=== PATIENT | female | born 1965 | race Caucasian/White ===

== ENCOUNTER 2022-06-05 07:36 | Day surgery (SDC) | payer MEDICAID ==
[2022-06-04 14:02] LABS: CLARITY,URINE SLIGHTLY CLOUDY (Clear); COLOR,URINE YELLOW (Yellow); GLUCOSE, URINE NEGATIVE (Neg); KETONES,URINE TRACE mg/dl (Neg); LEUKOCYTE ESTERASE ,URINE NEGATIVE (Neg); NITRITES, URINE NEGATIVE (Neg); OCCULT BLOOD,URINE NEGATIVE (Neg); PROTEIN,URINE NEGATIVE (Neg); UROBILINOGEN,URINE 0.2 E.U/dL (0.2-1.0)
[2022-06-04 14:08] LABS: UA COLLECTION TYPE CLN CATCH MIDSTREAM
[2022-06-04 14:10] LABS: RBC,URINE NONE SEEN /HPF (0-2); WBC,URINE 0-4 /HPF (0-4)
[2022-06-04 14:12] LABS: BACTERIA,URINE FEW /HPF (Neg); MUCUS STRANDS MANY /LPF (Neg); SQUAMOUS EPITHELIAL CELL,UR MODERATE /LPF (FEW)
[2022-06-04 14:13] LABS: ALBUMIN/GLOBULIN RATIO 1.1 (1.1-1.5); ALKALINE PHOSPHATASE 71 IU/L (46-116); BLOOD UREA NITROGEN 12 MG/DL (7-18); BUN/CREATININE RATIO 14.3 (6.6-38.0); CALCIUM 9.8 MG/DL (8.5-10.1); CHLORIDE 102 MMOL/L (99-107); CREATININE 0.84 MG/DL (0.40-0.90); PRE OP ALT 73 U/L (30-65); PRE OP ANION GAP 6 (8-16); PRE OP AST 28 U/L (10-37); PRE OP BILIRUB, TOTAL 0.7 MG/DL (0.0-1.0); PRE OP POTASSIUM 3.9 MMOL/L (3.4-5.1); PRE OP SODIUM 140 MMOL/L (135-145); TOTAL CARBON DIOXIDE 32.1 MMOL/L (24-32); TOTAL PROTEIN 7.6 G/DL (6.4-8.2); eGFR 70 ML/MIN
[2022-06-04 14:13] LABS: HYALINE CASTS 0-3 /LPF (NEGATIVE)
[2022-06-04 14:18] LABS: BASOPHILS # (AUTO) 0.1 X10'3 (0-0.2); EOSINOPHILS # (AUTO) 0.1 X10'3 (0-0.9); EOSINOPHILS % (AUTO) 1.4 % (0-6); LYMPHOCYTES # (AUTO) 3.5 X10'3 (1.1-4.8); LYMPHOCYTES % (AUTO) 37.9 % (21-51); MEAN CORPUSCULAR HEMOGLOBIN 30.4 PG (27.0-31.0); MEAN CORPUSCULAR HGB CONC 34.5 g/dL (33.0-36.5); MEAN CORPUSCULAR VOLUME 88.1 FL (78-98); MEAN PLATELET VOLUME 6.7 FL (7.4-10.4); MONOCYTES # (AUTO) 0.5 X10'3 (0-0.9); MONOCYTES % (AUTO) 4.9 % (2-12); NEUTROPHILS # (AUTO) 5.1 X10'3 (1.8-7.7); NEUTROPHILS % (AUTO) 54.8 % (42-75); PRE OP HEMATOCRIT 46.1 % (35.0-45.0); PRE OP HEMOGLOBIN 15.9 g/dL (12.0-16.0); PRE OP PLATELET COUNT 408 X10'3 (140-440); RED BLOOD COUNT 5.23 X10'6 (4.20-5.60); RED CELL DISTRIBUTION WIDTH 11.8 % (11.5-14.5)
[2022-06-04 14:22] LABS: PRE OP GLUCOSE 246 MG/DL (70-104)
[~2022-06-05] VITALS: Ht 157.5 cm; Wt 69.0 kg
[2022-06-05] VITALS (17 sets, daily range): BP systolic 127–161; BP diastolic 74–100
[~2022-06-05 07:36] MED LIST: AMLO5TAB16 PO; BENA40TA72 PO; GABA300T25 PO; METF-1203 PO; ceFAZolin inj. 2,000 MG in dextrose 5%-water 100 ML IV ONE; famotidine 20mg tablet PO ONE; ringers solution, lacted 1,000 ML IV SCH
[2022-06-05] MEDS ORDERED: sevoflurane 250ml liquid IH ONE (09:52)
[2022-06-05] MEDS ORDERED: BUPIVAcaine 0.5% inj/PF 30 ML ONE (09:53)
[2022-06-05] MEDS ORDERED: midazolam 1 mg/ML 2ml injection ONE (09:59)
[2022-06-05] MEDS ORDERED: fentaNYL /PF 50mcg/ml 5ml ampule ONE (09:59)
[2022-06-05] MEDS ORDERED: LIDOcaine 2% (20mg/ml) 5ml vial ONE (10:38)
[2022-06-05] MEDS ORDERED: ondansetron/PF 4mg/2ml inj ONE (10:38)
[2022-06-05] MEDS ORDERED: rocuronium 10mg/ml inj IV ONE (10:38)
[2022-06-05] MEDS ORDERED: propofol inj 20 ML IV ONE (10:38)
[2022-06-05] MEDS ORDERED: dexamethasone sod phosphate 4mg/ml inj. ONE (10:38)
[2022-06-05] MEDS ORDERED: BUPIVAcaine 0.5% inj/PF 30 ml vial IJ ONE (10:41)
[2022-06-05] MEDS ORDERED: neostigmine methylsulfate 1 MG/ML 10ml vial ONE (11:49)
[2022-06-05] MEDS ORDERED: glycopyrrolate 0.2mg/ml inj ONE (11:50)
--- NOTE | 2022-06-05 12:02 | NUR ---
Received from OR via [facility], accompanied by Anesthesiologist DR PRINCE and report given by Anesthesiologist AND TAXI DRIVER. PT DROWSY W/LMA IN PLACE, NO S/S OF DISTRESS/DISCOMFORT, ABDOMEN W/4 LAP SITES W/DERMABOND CDI. Addendum: 06/05/22 at 1221 by Fang Calvert RN Amended: Links added.
[2022-06-05] MEDS ORDERED: meperidine/PF 25mg/ml syringe ONE (12:32)
[2022-06-05] MEDS ORDERED: ringers solution, lacted 1,000 ML IV SCH (12:40)
[2022-06-05] MEDS ORDERED: morphine 2 MG/ML inj. syringe IV PRN (12:40)
[2022-06-05] MEDS ORDERED: meperidine/PF 25mg/ml syringe IV PRN ×3 (12:40)
[2022-06-05] MEDS ORDERED: ketorolac trometh. 30mg/ml inj. IV ONE (12:40)
[2022-06-05] MEDS ORDERED: proCHLORperazine 10 MG/2 ml inj IV PRN (12:40)
[2022-06-05] MEDS ORDERED: ondansetron/PF 4mg/2ml inj IV PRN (12:40)
[2022-06-05] MEDS ORDERED: labetalol 20mg/4ml (5mg/ml) syringe IV PRN (12:40)
[2022-06-05] MEDS ORDERED: acetaminophen 1,000mg/100ml IV 100 ML IV PRN (12:40)
[2022-06-05] MEDS ORDERED: morphine 4 MG/ML inj SYRINge IV PRN (12:40)
[2022-06-05] MEDS ORDERED: hydrALAZINE 20mg/ml inj. IV PRN (12:40)
[2022-06-05] MEDS ORDERED: oxyCODONE/APAP 5-325mg tablet PO ONE (14:35)
--- NOTE | 2022-06-05 14:36 | NUR ---
PT UP AND AMBULATED TO BATHROOM FOR VOID, STEADY ON FEET. AWAITING HER RIDE HOME. Addendum: 06/05/22 at 1437 by Fang Calvert RN Amended: Links added.
--- NOTE | 2022-06-05 14:52 | NUR ---
PTS RIDE ARRIVED, D/C INSTRUCTIONS GIVEN AND GONE OVER W/PT WHO VERBALIZED UNDERSTANDING. PT D/CD TO HOME VIA W/C TO PRIVATE VEHICLE W/O INCIDENT. Addendum: 06/05/22 at 1515 by Fang Calvert RN Amended: Links added.
== END 2022-06-05 14:52 | disposition home or self-care (01) ==
LOC: PAS 07:36
PROVIDERS: ATTEND Surgery
DX: K40.20 Bilateral inguinal hernia, without obstruction or gangrene, not specified as recurrent (principal); K41.90 Unilateral femoral hernia, without obstruction or gangrene, not specified as recurrent; I10 Essential (primary) hypertension; F17.210 Nicotine dependence, cigarettes, uncomplicated; M16.9 Osteoarthritis of hip, unspecified; Z79.899 Other long term (current) drug therapy
CPT/HCPCS: 36415; 49650; 49659; 80053; 81001; 82948; 85025; 93005; C1758; C1781; J0131; J0690; J1100; J1885; J2175; J2250; J2405; J2704; J2710; J3010; J3490; J7030; J7060; J7120; S0020; S2900; Z7506; Z7508; Z7512; A4215; A4618